=== PATIENT | female | born 1965 | race Asian ===

== ENCOUNTER 2018-08-25 18:44 | Emergency (ER) | payer OTHER ==
[~2018-08-25] VITALS: Ht 162.6 cm; Wt 64.0 kg
[2018-08-25 18:50] VITALS: Ht 162.6 cm; Wt 64.0 kg
[2018-08-25 19:42] LABS: BASOPHIL % 0.4 % (0-2); PLATELET COUNT 235 x10^3mcL (130-400); RED CELL DISTRIBUTION WIDTH 12.5 % (11.5-14.5)
[2018-08-25 19:57] LABS: CALCIUM 8.4 mg/dL (8.5-10.1); CARBON DIOXIDE 28.4 mmol/L (21-32); CHLORIDE SERUM 106 mmol/L (98-107); CREATININE SERUM 0.7 mg/dL (0.6-1.0); GFR1 > 60 mL/min; GLUCOSE SERUM 114 mg/dL (74-106); POTASSIUM SERUM 3.5 mmol/L (3.5-5.1); SODIUM SERUM 143 mmol/L (136-145)
[2018-08-25 19:58] LABS: microscopic required? NO
[2018-08-25 20:01] LABS: ALBUMIN 3.4 g/dL (3.4-5.0); ALKALINE PHOSPHATASE 80 U/L (46-116); ALT/SGPT 22 U/L (14-59); AST/SGOT 15 U/L (15-37); BILIRUBIN TOTAL 0.13 mg/dL (0.20-1.00); LIPASE 224 IU/L (73-393); TOTAL PROTEIN, SERUM 7.3 g/dL (6.4-8.2)
[2018-08-25 20:04] LABS: UA SPECIFIC GRAVITY <=1.005 (1.005-1.035); urine erythrocyte NEGATIVE (NEGATIVE)
[2018-08-25 21:59] VITALS: BP 101/69
== END 2018-08-25 23:56 | disposition home or self-care (01) ==
LOC: ED 18:44
PROVIDERS: Emergency Medicine
DX: K52.9 Noninfective gastroenteritis and colitis, unspecified (principal); R55 Syncope and collapse
CPT/HCPCS: J1885; J2270; J2405; J3490; J7030; Q0092; Q9967